=== PATIENT | male | born 1985 | race Caucasian/White ===

== ENCOUNTER → 2023-09-22 | Outpatient (CLI) | payer OTHER, SELFPAY ==
--- NOTE | 2023-09-22 09:49 | ECHOD_ITS ---
Reason For Study: PALPITATIONS Procedure This was a 2D Doppler, Color Flow transthoracic echocardiogram. Exam performed in department. Left Ventricle Normal LV size. Mild concentric left ventricular hypertrophy. The left ventricular ejection fraction is 65 %. No evidence for diastolic dysfunction. Right Ventricle Normal right ventricle. Atria Normal left atrium. The right atrium is mildly enlarged. Mitral Valve The mitral valve is structurally normal. No prolapse or stenosis seen. Tricuspid Valve Trivial tricuspid valve insufficiency. Unable to estimate RV systolic pressure due to insufficient tricuspid regurgitant envelope. Aortic Valve Trisinus/trileaflet aortic valve. Pulmonic Valve The pulmonic valve is not well visualized. Great Vessels Normal sized aortic root. Pericardium/Pleural No pericardial effusion. MMode/2D Measurements & Calculations LVIDd: 3.8 cm IVSd: 1.2 cm Ao root diam: 3.3 cm LVIDs: 2.5 cm LVPWd: 1.2 cm FS: 34.4 % LAV(MOD-bp): 32.0 ml LVAd ap4: 23.9 cm2 SV(MOD-sp4): 42.0 ml LAV(MOD-bp) Indexed: 16.6 ml/m2 LVLd ap4: 7.5 cm LAV(MOD-sp2): 32.8 ml EDV(MOD-sp4): 62.0 ml LAV(MOD-sp4): 29.0 ml EDV(sp4-el): 65.0 ml LVAs ap4: 11.9 cm2 LVLs ap4: 5.9 cm ESV(MOD-sp4): 20.0 ml ESV(sp4-el): 20.4 ml EF(MOD-sp4): 67.8 % EF(sp4-el): 68.7 % SV(sp4-el): 44.7 ml LA A4 area: 12.7 cm2 LA dimension(2D): 3.5 cm RA A4 area: 12.7 cm2 TAPSE: 1.3 cm Time Measurements MV dec time: 0.14 sec Doppler Measurements & Calculations MV E max morgan: 79.5 cm/sec Lat Peak E' Morgan: 10.1 cm/sec Med Peak E' Morgan: 7.6 cm/sec MV A max morgan: 102.1 cm/sec E/E' lat: 7.9 E/E' med: 10.5 MV E/A: 0.78 MV V2 max: 157.0 cm/sec Ao V2 max: 128.3 cm/sec MV max P.9 mmHg MV dec slope: 583.3 cm/sec2 Ao max P.6 mmHg MV V2 mean: 81.6 cm/sec Ao V2 mean: 90.4 cm/sec MV mean P.2 mmHg Ao mean P.7 mmHg MV V2 VTI: 27.9 cm Ao V2 VTI: 23.3 cm AV (velocity ratio): 0.86 LV V1 max: 103.3 cm/sec PA V2 max: 77.7 cm/sec LV V1 max P.3 mmHg PA V2 mean: 56.9 cm/sec LV V1 mean P.1 mmHg LV V1 mean: 67.2 cm/sec LV V1 VTI: 20.0 cm ECHO/Echo Complete Interpretation Summary Mild concentric left ventricular hypertrophy. The left ventricular ejection fraction is 65 %. The right atrium is mildly enlarged. Ordering Physician: Tahir Baltazar Referring Physician: Tahir Baltazar Performed By: Almita Ureña RCS
--- NOTE | 2023-09-22 10:15 | CT_ITS ---
STUDY: CT CHEST WITH CONTRAST REASON FOR EXAM: Male, 38 years old. PAL[address] LIMITED [address] OVER READ ONLY RADIATION DOSAGE (If Supplied By Facility): CTDIvol = ( 32.43 ) mGy, DLP = ( 1023.21 ) mGycm TECHNIQUE: Transaxial imaging was performed following intravenous administration of IV 55mL Isovue-[id number]. Individualized dose optimization techniques were used for this CT. COMPARISON: No relevant priors. FINDINGS: CHEST The lungs are normal. There is no demonstrated pleural abnormality. Normal heart and pericardium. Normal mediastinum. Normal hilar regions. Normal unenhanced pulmonary arteries. Normal aorta arch and descending thoracic aorta. Normal osseous structures. There is no demonstrated abnormality of the visualized upper abdomen. CT/Limited Chest CT Cardiac Only IMPRESSION: Normal enhanced CT chest T abdomen examination. Electronically Signed: Luis F Jackson MD at 10:20 EST ,
[2023-09-22 10:48] VITALS: BP 131/107; PULSE 77; RESP 16; O2SAT 99; BMI 26.4
[2023-09-22 11:06] VITALS: BP 131/107; PULSE 74
[2023-09-22] MEDS: Nitroglycerin SL (ED/IMG/CATH) 0.4 MG TABLET SL (11:06)
[2023-09-22 11:15] VITALS: BP 117/82; PULSE 77; RESP 16; O2SAT 98
[2023-09-22 11:20] LABS: Anion Gap 4 (5-15); BUN 14 mg/dL (7-18); BUN/Creat Ratio 12.7 RATIO (10-20); Calcium,Total 9.4 mg/dL (8.5-10.1); Chloride 106 mmol/L (98-107); EST Glomerular Filtration Rate 79 mL/min (>60); Est Glom Filt Rate - Afr Amer 96 mL/min (>60); Estimated Creatinine Clearance 88.09 ml/min; Glucose 79 mg/dL (74-106); Potassium 3.9 mmol/L (3.5-5.1); Sodium Level 139 mmol/L (136-145)
--- NOTE | 2023-09-22 12:29 | CCTA.WCONT ---
CCTA w/Cont Coronary Arteries Date of Study:: 09/22/23 Abnormal EKG Coronary Calcium Scoring: High-resolution Computed Tomographic imaging of the chest was performed on [09/22/23], with particular attention paid to the coronary arteries. Intravenous contrast agent was administered per protocol and images reconstructed and displayed. LEFT MAIN CORONARY ARTERY: Left main coronary artery arose out of the left coronary cusp and bifurcating to left anterior descending artery and left circumflex artery. No significant stenosis or calcification was noted. [] LEFT ANTERIOR DESCENDING CORONARY ARTERY: The left anterior descending artery was a large vessel. It gives off 2 diagonal branches there was the apex of the left ventricle no significant stenosis was noted in this vessel. [] LEFT CIRCUMFLEX CORONARY ARTERY: The left circumflex artery was a dominant vessel arising off the left coronary cusp. It came off the left main coronary artery and coursed in the AV groove. It also gave off a posterior descending artery. No significant stenosis was noted in this vessel. RIGHT CORONARY ARTERY: This was a nondominant vessel with no significant stenosis present. CORONARY CALCIUM SCORE: This was not performed but no obvious coronary calcification was present. Conclusion: Coronary CT angiogram with no angiographically significant stenosis noted. []
== END | disposition home or self-care (01) ==
PROVIDERS: Nurse Practitioner Family; PCP Family Medicine; Referring Provider Internal Medicine Cardiovascular Disease; Visit Provider Internal Medicine Cardiovascular Disease
DX: I10 Essential (primary) hypertension (principal); R00.2 Palpitations; R03.0 Elevated blood-pressure reading, without diagnosis of hypertension; R94.31 Abnormal electrocardiogram [ECG] [EKG]; R94.39 Abnormal result of other cardiovascular function study; I49.3 Ventricular premature depolarization
CPT/HCPCS: 75574; 76380; 80048; 84443; 93225; 93226; 93306; Q9967